=== PATIENT | male | born 1965 | race Asian ===

== ENCOUNTER 2019-03-23 20:35 | Emergency (ER) | payer SELFPAY ==
[2019-03-23] MEDS ORDERED: Acetaminophen TAB* 325 MG PO ONE (20:55)
--- NOTE | 2019-03-23 21:00 | ED ---
Upper Extremity Pain - HPI Summary HPI Summary: Pt is a 53 y/o M presenting to the ED with a chief complaint of R upper extremity pain. He states about a half hour [employer] he slipped on some ice and hit his R elbow. He denies any other sx, including head injury or headache. - History of Current Complaint Chief Complaint: EDExtremityUpper Stated Complaint: SLIPPED ON ICE HURT L ELBOW PER PT Time Seen by Provider: 03/23/19 20:52 Hx Obtained From: Patient Mechanism Of Injury: Fall From A Standing Position Onset/Duration: Started Minutes Ago, Still Present Timing: Constant, Lasting Minutes Severity Initially: Moderate Severity Currently: Moderate Pain Location: Elbow - right Aggravating Factor(s): Nothing Alleviating Factor(s): Nothing Associated Signs & Symptoms: Positive: Negative - Allergies/Home Medications Allergies/Adverse Reactions: Allergies Allergy/AdvReac Type Severity Reaction Status Date / Time No Known Allergies Allergy Verified 03/23/19 20:40 PMH/Surg Hx/FS Hx/Imm Hx Previously Healthy: Yes Endocrine/Hematology History: Denies: Hx Diabetes Cardiovascular History: Reports: Hx Hypertension Infectious Disease History: No Infectious Disease History: Reports: Traveled Outside the [place] in Last 30 Days - Family History Known Family History: Negative: Diabetes - Social History Alcohol Use: None Hx Substance Use: No Substance Use Type: Reports: None Hx Tobacco Use: No Smoking Status (MU): Never Smoked Tobacco Review of Systems Positive: Arthralgia Negative: Headache All Other Systems Reviewed And Are Negative: Yes Physical Exam - Summary Physical Exam Summary: Appearance: Well-appearing, Well-nourished, lying in bed comfortable Skin: Warm, dry, no obvious rash Eyes: sclera anicteric, no conjunctival pallor ENT: mucous membranes moist Neck: deferred Respiratory: No signs of respiratory distress Cardiovascular: Appears well perfused, pulses are nml Abdomen: deferred Musculoskeletal: Tenderness over olecranon with associated soft tissue edema. Pt is able to fully extend forearm. There is some palpable crepitus when he was flexing and extending forearm, but there is no definite deformity. Other extremities WNL Neurological: Awake and alert, mentation is normal, speech is fluent and appropriate Psychiatric: affect is normal, does not appear anxious or depressed Triage Information Reviewed: Yes Vital Signs On Initial Exam: Initial Vitals Temp Pulse Resp BP Pulse Ox 97.8 F 68 20 198/112 99 01/16/20 20:35 03/23/19 20:35 03/23/19 20:35 03/23/19 20:35 03/23/19 20:35 Vital Signs Reviewed: Yes Procedures - Sedation Patient Received Moderate/Deep Sedation with Procedure: No - Splinting Right Upper Extremity Location: R elbow Pre-Made Type: OCL Splint: sugar-tong - w/ posterior walking Pre-Proc Neuro Vasc Exam: normal Post-Proc Neuro Vasc Exam: normal Splint Applied by Provider: Wade [facility] - Vital Signs Vital Signs Temp Pulse Resp BP Pulse Ox 03/23/19 20:35 97.8 F 68 20 198/112 99 - Laboratory Lab Statement: Any lab studies that have been ordered have been reviewed, and results considered in the medical decision making process. - Radiology Elbow XR Radiology Interpretation Completed By: ED Physician Summary of Radiographic Findings: Minimally displaced fracture of the coronoid process of the proximal ulna. Pending official radiology report. Course/Dx - Course Course Of Treatment: Pt is a 53 y/o M presenting to the ED with a chief complaint of R upper extremity pain. He states about a half hour [employer] he slipped on some ice and hit his R elbow. He denies any other sx, including head injury or headache. On exam, there is some tenderness over olecranon with associated soft tissue edema. Pt is able to fully extend forearm. There is some palpable crepitus when he was flexing and extending forearm, but there is no definite deformity. Other extremities are WNL. Elbow XR shows: Minimally displaced fracture of the coronoid process of the proximal ulna, pending official radiology report. Pt wishes to defer further CT imaging until he is back home in [facility]. He says he can secure appropriate care there. Splint applied by Dr. Kelsey, pt instructed to f/u with orthopedics for further evaluation of fracture. Pt will be d/c'ed with dx of proximal ulna fracture. He is stable and agreeable with this plan. - Diagnoses Provider Diagnoses: Fracture, ulna, proximal Discharge ED - Sign-Out/Discharge Documenting (check all that apply): Patient Departure - Discharge Plan Condition: Good Disposition: HOME Patient Education Materials: Elbow Fracture (ED) Forms: *Gen. Provider Communication Referrals: Osbaldo Williamson MD [Medical Doctor] - Additional Instructions: The elbow has a fracture of the coronoid process of the proximal ulna. Usually this can be treated conservatively with splinting and/or casting, as we have done. Our orthopedic surgeon here did recommend getting a CT scan, since sometimes the injury is more severe than can be appreciated on a plain xray, but it is certainly ok to defer that to your doctors in [place]. In the meantime keep the splint on until you are cleared by an orthopedic surgeon there. - Billing Disposition and Condition Condition: GOOD Disposition: Home - Attestation Statements Document Initiated by Dillon: Yes Documenting Scribe: Radha Newman Provider For Whom Dillon is Documenting (Include Credential): Wade Kelsey MD. Scribe Attestation: Radha Son, sitaed for Wade Kelsey MD. on 03/28/19 at 0138. Scribe Documentation Reviewed: Yes Provider Attestation: The documentation as recorded by the [email or web address] accurately reflects the service I personally performed and the decisions made by me, Wade Kelsey MD. Status of Scribe Document: Viewed Consult Consult: [id number] - I spoke with Dr. Williamson who recommends placing the pt in a posterior walking sugar tong splint and following up outpatient for a CT of the arm for possible surgery.
[2019-03-23 22:08] VITALS: BP 185/109
== END 2019-03-23 22:07 | disposition home or self-care (01) ==
LOC: ED 20:35
DX: S52.041A Displaced fracture of coronoid process of right ulna, initial encounter for closed fracture (principal); W00.0XXA Fall on same level due to ice and snow, initial encounter; Y92.9 Unspecified place or not applicable; I10 Essential (primary) hypertension
CPT/HCPCS: 99282; A9270-GY